=== PATIENT | male | born 1990 | race African-American/Black ===

== ENCOUNTER 2019-07-29 11:46 | Emergency (ER) | payer SELFPAY ==
[~2019-07-29] VITALS: Ht 182.9 cm; Wt 89.1 kg
[~2019-07-29 11:46] MED LIST: NOCURR
[2019-07-29 13:19] VITALS: BP 116/74
== END 2019-07-29 13:21 | disposition home or self-care (01) ==
LOC: EMS 11:51
DX: S93.601A Unspecified sprain of right foot, initial encounter (principal); F12.90 Cannabis use, unspecified, uncomplicated; X58.XXXA Exposure to other specified factors, initial encounter; Y93.89 Activity, other specified; Y92.512 Supermarket, store or market as the place of occurrence of the external cause; Y99.0 Civilian activity done for income or pay